=== PATIENT | male | born 1960 | race Caucasian/White ===

== ENCOUNTER 2018-02-25 21:32 | Emergency (ER) | payer OTHER ==
[~2018-02-25] VITALS: Ht 172.7 cm; Wt 66.2 kg
[~2018-02-25 21:32] MED LIST: ANTIVERT25 MG PO; BACTRIM,SEPT1 TABLET PO; CIPRO500 MG PO; CLEOCIN150 MG PO; DEBROX15 ML BOTH EARS; DIVALPROEX SOD250 MG PO; FLAGYL500 MG PO; FLORANEX GRANU1 EACH PO; INDOCIN50 MG PO; KEFLEX500 MG PO; LORCET 5-325 M1 EACH PO; LYRICA75 MG PO; METOPROLOL SUC100 MG PO; METOPROLOL TART25 MG PO; MOBIC7.5 MG PO; NAPROSYN500 MG PO; NICOTINE PATCH1 EAC1 TD; PERCOCET 5/31 TABLET PO; TORADOL10 MG PO; ULTRAM50 MG PO; ZOFRAN4 MG PO; [UNRECOGNIZED DRUG - REMARK]
[2018-02-25 23:33] VITALS: BP 117/87
== END 2018-02-25 23:33 | disposition home or self-care (01) ==
LOC: EME → EDBD 21:32 → EME 21:32
DX: T40.1X1A Poisoning by heroin, accidental (unintentional), initial encounter (principal); I10 Essential (primary) hypertension; J44.9 Chronic obstructive pulmonary disease, unspecified; G89.29 Other chronic pain; M54.9 Dorsalgia, unspecified; F31.9 Bipolar disorder, unspecified; F41.9 Anxiety disorder, unspecified; F17.200 Nicotine dependence, unspecified, uncomplicated
CPT/HCPCS: 99281; 99285; J2310

== ENCOUNTER 2018-03-18 13:58 | Emergency (ER) | payer OTHER ==
[~2018-03-18] VITALS: Ht 172.7 cm; Wt 61.0 kg
[2018-03-18 14:30] LABS: HEMATOCRIT 46.9 % (38.0-50.0); HEMOGLOBIN 16.5 G/DL (12.5-16.6); MCH 33.2 PG (29.0-34.0); MCHC 35.2 G/DL (30.0-36.0); MCV 94.4 FL (86-99); PLATELET COUNT 162 K/uL (156-360); RBC DIS.WIDTH-CV 12.5 % (11.8-14.6); RBC DIS.WIDTH-SD 43.3 % (39-53); RED BLOOD COUNT 4.97 M/uL (4.00-5.50); WHITE BLOOD COUNT 12.3 K/uL (4.1-10.2)
[2018-03-18 14:39] LABS: CHLORIDE 104 mEq/L (99-109); POTASSIUM 4.2 mEq/L (3.7-5.4); SODIUM 139 mEq/L (136-147)
[2018-03-18 14:42] LABS: GLUCOSE 101 mg/dL (70-99); TOTAL PROTEIN 7.6 g/dL (6.4-8.3)
[2018-03-18 14:44] LABS: TOTAL BILIRUBIN 0.4 mg/dL (0.0-1.0)
[2018-03-18 14:45] LABS: SERUM ETHYL ALCOHOL 226 mg/dL
[2018-03-18 14:46] LABS: ALKALINE PHOSPHATASE 74 IU/L (3-129); CREATININE 0.9 mg/dL (0.6-1.3); GFR ESTIMATE (CALCULATED) > 59 mL/min/ (58.99-99999)
[2018-03-18 14:47] LABS: AST (GOT) 57 IU/L (2-34); UREA NITROGEN (BUN) 14 mg/dL (9-23)
[2018-03-18 14:49] LABS: ACETAMINOPHEN (TYLENOL) < 10 mcg/mL (10-30); ALT (GPT) 41 IU/L (3-49); SALICYLATE < 5.0 MG/DL (15-30)
[2018-03-18 16:37] VITALS: BP 134/88
== END 2018-03-18 16:38 | disposition home or self-care (01) ==
LOC: EME 13:58
PROVIDERS: Emergency Medicine
DX: F10.129 Alcohol abuse with intoxication, unspecified (principal); Y90.7 Blood alcohol level of 200-239 mg/100 ml; F11.10 Opioid abuse, uncomplicated; J44.9 Chronic obstructive pulmonary disease, unspecified; I10 Essential (primary) hypertension; F31.9 Bipolar disorder, unspecified; F41.9 Anxiety disorder, unspecified; F17.200 Nicotine dependence, unspecified, uncomplicated
CPT/HCPCS: 71045; 80053; 81003; 85027; 99281; 99284; G0480